=== PATIENT | male | born 1940 | race Caucasian/White ===

== ENCOUNTER 2017-11-23 17:52 | Emergency (ER) | payer MEDICARE ==
[~2017-11-23] VITALS: Ht 180.3 cm; Wt 104.0 kg
[~2017-11-23 17:52] MED LIST: ASPIRIN PO; AUGMENTIN875TAB PO; COZAAR50 MG PO; LOSARTAN POT50 MG PO; METOPROL TAR25 MG PO; ONE DAILY ADULTS50 + PO; PLAVIX75 MG PO; PRAVASTATIN80 MG PO; PREDNISONE20 MG PO
[2017-11-23 20:04] LABS: URINE BLOOD DIPSTICK TRACE-INTACT (NEGATIVE); URINE COLOR YELLOW; URINE GLUCOSE - DIPSTICK NEGATIVE (NEGATIVE); URINE KETONE TRACE mg/dL (NEGATIVE); URINE LEUK ESTERASE NEGATIVE (NEGATIVE); URINE NITRITE - DIPSTICK NEGATIVE (Negative); URINE PH 5.5 (4.5-8.0); URINE PROTEIN - DIPSTICK NEGATIVE (NEG-TRACE); URINE SPECIFIC GRAVITY >=1.030; URINE UROBILINOGEN - DIPSTICK 0.2 E.U./dL (0.2)
[2017-11-23 20:05] LABS: HEMATOCRIT 41.8 % (39.0-50.0); HEMOGLOBIN 13.5 g/dl (14.0-18.0); IMMATURE GRANULOCYTES 0.7 % (0.0-1.0); MEAN CELL VOLUME 91.5 fL CALC (80.0-100.0); MEAN CORPUSCULAR HGB 29.5 pG CALC (26.0-32.0); MEAN CORPUSCULAR HGB CONC 32.3 g/L CALC (32.0-36.0); NEUT# 12.74 thou/uL (1.82-7.42); RED BLOOD COUNT 4.57 mill/uL (4.70-6.10); RED CELL DISTRI WIDTH 12.4 % (11.5-15.5)
[2017-11-23 20:07] LABS: URINE BILIRUBIN - DIPSTICK NEGATIVE (NEGATIVE); URINE CLARITY CLEAR
[2017-11-23 20:16] LABS: ANION GAP 19 (6-22 (CALC)); BUN 34 mg/dL (8-23); BUN/CREATININE RATIO 28 (12-20 (CALC)); CARBON DIOXIDE 20 mmol/l (22-30); CHLORIDE 104 mmol/l (95-108); CREATININE 1.2 mg/dL (0.7-1.3); GFR 58 ML/MIN (>=60 (CALC)); GFR FOR AFR.AMER. > 60 ML/MIN (>=60 (CALC)); POTASSIUM 4.7 mmol/l (3.5-5.1); SODIUM 139 mmol/l (137-146)
[2017-11-23 20:17] LABS: INFLUENZA A NONE DETECTED (NONE DETECT); INFLUENZA B NONE DETECTED (NONE DETECT)
[2017-11-23] MEDS ORDERED: DOXYCYC MONO100 M2 PO (20:34)
[2017-11-23 20:40] VITALS: BP 106/60
== END 2017-11-23 20:40 | disposition home or self-care (01) ==
LOC: ED 17:52
PROVIDERS: Family Medicine
DX: J06.9 Acute upper respiratory infection, unspecified (principal); R50.9 Fever, unspecified; R05 Cough; R53.1 Weakness; I10 Essential (primary) hypertension; I25.2 Old myocardial infarction

== ENCOUNTER 2019-02-06 15:14 | Emergency (ER) | payer MEDICARE ==
[~2019-02-06] VITALS: Ht 180.3 cm; Wt 111.0 kg
[~2019-02-06 15:14] MED LIST changes: +DOXYCYC MONO100 M2 PO
[2019-02-06] MEDS ORDERED: LIPITOR20 MG PO (16:43)
[2019-02-06 17:05] VITALS: BP 109/56
== END 2019-02-06 17:05 ==
LOC: ED 15:14
DX: S68.522A Partial traumatic transphalangeal amputation of left thumb, initial encounter (principal); S61.213A Laceration without foreign body of left middle finger without damage to nail, initial encounter; S61.215A Laceration without foreign body of left ring finger without damage to nail, initial encounter; W31.2XXA Contact with powered woodworking and forming machines, initial encounter; Y93.89 Activity, other specified; Y92.009 Unspecified place in unspecified non-institutional (private) residence as the place of occurrence of the external cause

== ENCOUNTER 2019-05-15 09:41 | Observation (INO) | payer MEDICARE ==
[~2019-05-15] VITALS: Ht 180.3 cm; Wt 114.0 kg
[~2019-05-15 09:41] MED LIST changes: +COZAAR100 MG PO; +LIPITOR40 M1 PO; -LOSARTAN POT50 MG PO
[2019-05-15 10:51] LABS: HEMATOCRIT 40.4 % (39.0-50.0); IMMATURE GRANULOCYTES 0.3 % (0.0-5.0); MEAN CELL VOLUME 91.2 fL CALC (80.0-100.0); MEAN CORPUSCULAR HGB 29.3 pG CALC (26.0-32.0); MEAN CORPUSCULAR HGB CONC 32.2 g/L CALC (32.0-36.0); NEUT# 4.24 thou/uL (1.82-7.42); RED BLOOD COUNT 4.43 mill/uL (4.70-6.10); RED CELL DISTRI WIDTH 12.7 % (11.5-15.5)
[2019-05-15] MEDS ORDERED: TAMSULOSIN HCL0.4 MG PO (10:52)
[2019-05-15] MEDS ORDERED: LORTAB 1010 MG PO (10:53)
[2019-05-15] MEDS ORDERED: ISOSORBIDE MONO30 MG PO (10:54)
[2019-05-15] MEDS ORDERED: SYSTAN1 OU (10:55)
[2019-05-15 11:06] LABS: URINE BILIRUBIN - DIPSTICK NEGATIVE (NEGATIVE); URINE BLOOD DIPSTICK LARGE (NEGATIVE); URINE COLOR BROWN; URINE GLUCOSE - DIPSTICK NEGATIVE (NEGATIVE); URINE KETONE NEGATIVE (NEGATIVE); URINE LEUK ESTERASE TRACE (NEGATIVE); URINE PH 6.5 (4.5-8.0); URINE PROTEIN - DIPSTICK 100 mg/dL (NEG-TRACE); URINE SPECIFIC GRAVITY 1.025
[2019-05-15 11:09] LABS: PROTHROMBIN TIME 10.9 SECONDS (9.0-12.5)
[2019-05-15 11:10] LABS: ALBUMIN 3.9 g/dL (3.2-5.0); ALKALINE PHOSPHATASE 78 u/l (38-126); ANION GAP 10 (6-22 (CALC)); BILIRUBIN, TOTAL 0.4 mg/dL (0.0-1.4); BUN 32 mg/dL (8-23); BUN/CREATININE RATIO 29 (12-20 (CALC)); CARBON DIOXIDE 29 mmol/l (22-30); CHLORIDE 106 mmol/l (95-108); CREATININE 1.1 mg/dL (0.7-1.3); GFR > 60 ML/MIN (>=60 (CALC)); GFR FOR AFR.AMER. > 60 ML/MIN (>=60 (CALC)); POTASSIUM 4.5 mmol/l (3.5-5.1); SGOT/AST 17 u/l (19-48); SODIUM 141 mmol/l (137-146); TOTAL PROTEIN 6.7 g/dL (6.3-8.2)
[2019-05-15 11:24] LABS: URINE NITRITE - DIPSTICK POSITIVE (Negative)
[2019-05-15 11:25] LABS: URINE RBC TNTC RBC/hpf (0-5)
[2019-05-15 15:02] VITALS: BP 142/79
[2019-05-15 18:52] VITALS: BP 127/72
[2019-05-16 05:11] VITALS: BP 157/87
[2019-05-16 07:00] VITALS: BP 163/77
[2019-05-16 15:27] VITALS: BP 114/68
[2019-05-16 19:44] VITALS: BP 121/72
[2019-05-17 03:52] VITALS: BP 132/70
[2019-05-17 05:23] LABS: HEMATOCRIT 37.4 % (39.0-50.0); HEMOGLOBIN 12.2 g/dl (14.0-18.0); MEAN CELL VOLUME 90.1 fL CALC (80.0-100.0); MEAN CORPUSCULAR HGB 29.4 pG CALC (26.0-32.0); MEAN CORPUSCULAR HGB CONC 32.6 g/L CALC (32.0-36.0); RED BLOOD COUNT 4.15 mill/uL (4.70-6.10); RED CELL DISTRI WIDTH 12.5 % (11.5-15.5)
[2019-05-17 05:55] LABS: ANION GAP 11 (6-22 (CALC)); BUN 24 mg/dL (8-23); BUN/CREATININE RATIO 23 (12-20 (CALC)); CARBON DIOXIDE 24 mmol/l (22-30); CHLORIDE 110 mmol/l (95-108); CREATININE 1.1 mg/dL (0.7-1.3); GFR > 60 ML/MIN (>=60 (CALC)); GFR FOR AFR.AMER. > 60 ML/MIN (>=60 (CALC)); POTASSIUM 4.3 mmol/l (3.5-5.1); SODIUM 140 mmol/l (137-146)
[2019-05-17 07:13] VITALS: BP 164/82
[2019-05-17 08:44] VITALS: BP 164/82
[2019-05-17] MEDS ORDERED: LEVAQUIN750 MG PO (11:05)
== END 2019-05-17 13:12 | disposition home or self-care (01) ==
LOC: ED 09:41 → ED-I 13:11 → ED 13:32 → MS2 13:33
PROVIDERS: Emergency Medicine; Internal Medicine; ADMIT Internal Medicine; ATTEND Internal Medicine
DX: N13.6 Pyonephrosis (principal); I10 Essential (primary) hypertension; I25.10 Atherosclerotic heart disease of native coronary artery without angina pectoris; M19.90 Unspecified osteoarthritis, unspecified site; N40.1 Benign prostatic hyperplasia with lower urinary tract symptoms; R35.1 Nocturia; R39.12 Poor urinary stream; E78.5 Hyperlipidemia, unspecified; I25.2 Old myocardial infarction; B96.5 Pseudomonas (aeruginosa) (mallei) (pseudomallei) as the cause of diseases classified elsewhere; Z96.641 Presence of right artificial hip joint; Z90.79 Acquired absence of other genital organ(s); Z87.891 Personal history of nicotine dependence; Z79.82 Long term (current) use of aspirin; Z79.02 Long term (current) use of antithrombotics/antiplatelets; Z85.47 Personal history of malignant neoplasm of testis; Z95.5 Presence of coronary angioplasty implant and graft

== ENCOUNTER 2019-06-24 06:43 | Day surgery (SDC) | payer MEDICARE ==
[~2019-06-24] VITALS: Ht 180.3 cm; Wt 112.5 kg
[~2019-06-24 06:43] MED LIST changes: +ASPIRIN ADULT L81 M2 PO; -ASPIRIN PO; +ISOSORBIDE MONO30 MG PO; +LEVAQUIN750 MG PO; +LORTAB 1010 MG PO; +PERCOCET 5/325M1 TAB PO; +SYSTAN1 OU; +TAMSULOSIN HCL0.4 MG PO
[2019-06-24] MEDS ORDERED: PERCOCET 10/31 COMBO PO (09:44)
[2019-06-24 11:02] VITALS: BP 155/78
== END 2019-06-24 11:20 | disposition home or self-care (01) ==
LOC: ORM 06:43
PROVIDERS: ATTEND Urology
PROC: 0TB68ZX Excision of Right Ureter, Via Natural or Artificial Opening Endoscopic, Diagnostic (ICD-10-PCS; principal; 2019-06-24)
PROC: 0T768DZ Dilation of Right Ureter with Intraluminal Device, Via Natural or Artificial Opening Endoscopic (ICD-10-PCS; 2019-06-24)
PROC: 0TP98DZ Removal of Intraluminal Device from Ureter, Via Natural or Artificial Opening Endoscopic (ICD-10-PCS; 2019-06-24)
DX: C66.1 Malignant neoplasm of right ureter (principal); I10 Essential (primary) hypertension; I25.10 Atherosclerotic heart disease of native coronary artery without angina pectoris; Z85.47 Personal history of malignant neoplasm of testis; Z90.79 Acquired absence of other genital organ(s); Z79.02 Long term (current) use of antithrombotics/antiplatelets; Z79.82 Long term (current) use of aspirin; Z95.5 Presence of coronary angioplasty implant and graft; Z87.891 Personal history of nicotine dependence
CPT/HCPCS: C1769; Q9967

== ENCOUNTER 2020-03-10 19:03 | Emergency (ER) | payer MEDICARE ==
[~2020-03-10 19:03] MED LIST changes: +PERCOCET 10/31 COMBO PO
[2020-03-10] MEDS ORDERED: OXYCODONE5 M1 PO (19:36)
[2020-03-10 20:17] LABS: HEMATOCRIT 36.4 % (39.0-50.0); HEMOGLOBIN 11.7 g/dl (14.0-18.0); IMMATURE GRANULOCYTES 0.7 % (0.0-5.0); MEAN CELL VOLUME 87.3 fL CALC (80.0-100.0); MEAN CORPUSCULAR HGB 28.1 pG CALC (26.0-32.0); MEAN CORPUSCULAR HGB CONC 32.1 g/dL CAL (32.0-36.0); NEUT# 12.66 thou/uL (1.82-7.42); RED BLOOD COUNT 4.17 mill/uL (4.70-6.10); RED CELL DISTRI WIDTH 15.4 % (11.5-15.5)
[2020-03-10 20:52] LABS: URINE BILIRUBIN - DIPSTICK NEGATIVE (NEGATIVE); URINE BLOOD DIPSTICK TRACE-INTACT (NEGATIVE); URINE COLOR YELLOW; URINE GLUCOSE - DIPSTICK NEGATIVE (NEGATIVE); URINE KETONE NEGATIVE (NEGATIVE); URINE NITRITE - DIPSTICK NEGATIVE (Negative); URINE PH 7.5 (4.5-8.0); URINE PROTEIN - DIPSTICK NEGATIVE (NEG-TRACE); URINE SPECIFIC GRAVITY 1.015; URINE UROBILINOGEN - DIPSTICK 0.2 E.U./dL (0.2)
[2020-03-10 20:53] LABS: ALBUMIN 4.1 g/dL (3.2-5.0); CREATININE 1.6 mg/dL (0.7-1.3); POTASSIUM 4.5 mmol/l (3.5-5.1); TOTAL PROTEIN 7.9 g/dL (6.3-8.2)
[2020-03-10 20:56] LABS: URINE LEUK ESTERASE MODERATE (NEGATIVE)
[2020-03-10 20:58] LABS: URINE BACTERIA FEW hpf; URINE SQUAMOUS EPITHELIAL CELL FEW EPI/hpf (0-FEW); URINE WBC TNTC WBC/hpf (0-5)
[2020-03-10 21:01] LABS: BILIRUBIN, TOTAL 0.9 mg/dL (0.0-1.4)
[2020-03-10] MEDS ORDERED: CEPHALEXIN500 MG PO (21:26)
[2020-03-10] MEDS ORDERED: MIRALAX3350 N1 PO (21:26)
[2020-03-10 22:24] VITALS: BP 157/91
[2020-03-11] MEDS ORDERED: ONDANSETRON4 MG PO ×2 (01:17→12:45)
[2020-03-11] MEDS ORDERED: CEPHALEXIN500 MG PO (12:45)
[2020-03-11] MEDS ORDERED: MIRALAX3350 N1 PO (12:45)
--- NOTE | 2020-03-14 11:18 | NUR ---
URINE CULTURE SHOWS MORGANELLA SENSITIVE TO BACTRIM, RESISTANT TO CEFAZOLIN. SPOKE WITH DR ROACH, NEW RX FOR BACTRIM DS PO BID X7 DAYS CALLED IN TO [facility]. SPOKE WITH PT AND PT'S , AWARE OF NEW RX AND TO STOP CEPHALEXIN.
== END 2020-03-10 22:35 | disposition home or self-care (01) ==
LOC: ED 19:03
PROVIDERS: Emergency Medicine
DX: K59.00 Constipation, unspecified (principal); N39.0 Urinary tract infection, site not specified; I25.10 Atherosclerotic heart disease of native coronary artery without angina pectoris; C67.6 Malignant neoplasm of ureteric orifice; I25.2 Old myocardial infarction; Z90.5 Acquired absence of kidney; Z20.828 Contact with and (suspected) exposure to other viral communicable diseases